=== PATIENT | male | born 1990 | race Caucasian/White ===

== ENCOUNTER 2019-06-20 15:19 | Emergency (ER) | payer SELFPAY ==
--- NOTE | 2019-06-20 15:46 | ER ---
Nurse's Notes [facility] Name: Geovani Duque Age: 28 yrs Sex: Male : 1990 Arrival Date: 06/20/2019 Time: 15:21 Bed 25 Private MD: Unknown, Unknown Diagnosis: Muscle spasm of back Presentation: 06/20 15:25 Presenting complaint: Patient states: I was pushing and pulling some membranes at work la1 and I felt a pop then started having some pain between my shoulder blades but more on the right. Transition of care: patient was not received from another setting of care. Onset of symptoms was June 20, 2019. Risk Assessment: Do you want to hurt yourself or someone else? Patient reports no desire to harm self or others. Initial Sepsis Screen: Does the patient meet any 2 criteria? No. Patient's initial sepsis screen is negative. Does the patient have a suspected source of infection? No. Patient's initial sepsis screen is negative. Care prior to arrival: None. 15:25 Method Of Arrival: Ambulatory la1 15:25 Acuity: WILMA 4 la1 Historical: - Allergies: 15:25 No Known Allergies; la1 - PMHx: 15:25 None; la1 - Immunization history:: Adult Immunizations up to date. - Social history:: Smoking status: Patient/guardian denies using tobacco. - Ebola Screening: : No symptoms or risks identified at this time. Screenin:34 Abuse screen: Denies threats or abuse. Nutritional screening: No deficits noted. tw2 Tuberculosis screening: No symptoms or risk factors identified. Fall Risk None identified. Assessment: 15:34 General: Appears in no apparent distress. Behavior is calm, cooperative, appropriate tw2 for age. Pain: Complains of pain in left low back and right low back. Neuro: Level of Consciousness is awake, alert, obeys commands, Oriented to person, place, time, situation. Cardiovascular: Patient's skin is warm and dry. Respiratory: Airway is patent Respiratory effort is even, unlabored, Respiratory pattern is regular, symmetrical. GI: No signs and/or symptoms were reported involving the gastrointestinal system. : No signs and/or symptoms were reported regarding the genitourinary system. EENT: No signs and/or symptoms were reported regarding the EENT system. Derm: No signs and/or symptoms reported regarding the dermatologic system. Musculoskeletal: Range of motion: intact in all extremities. 15:53 Reassessment: Patient appears in no apparent distress at this time. No changes from tw2 previously documented assessment. Patient and/or family updated on plan of care and expected duration. Pain level reassessed. Patient is alert, oriented x 3, equal unlabored respirations, skin warm/dry/pink. Vital Signs: 15:26 BP 168 / 101; Pulse 71; Resp 16; Temp 97.4; Pulse Ox 98% on R/A; Weight 122.47 kg; la1 Height 6 ft. 8 in. (203.20 cm); 15:26 Body Mass Index 29.66 (122.47 kg, 203.20 cm) la1 ED Course: 15:21 Patient arrived in ED. ag5 15:22 Unknown, Unknown is Private Physician. ag5 15:25 Arm band placed on left wrist. la1 15:26 Triage completed. la1 15:27 [facility] jr8 15:27 Bal Coburn MD is Attending Physician. jr8 15:27 Bed in low position. Call light in reach. tw2 15:28 Delio Martinez, ZOYA is Primary Nurse. rv 15:53 No provider procedures requiring assistance completed. Patient did not have IV access tw2 during this emergency room visit. Administered Medications: No medications were administered Outcome: 15:44 Discharge ordered by . jr8 15:53 Discharged to home ambulatory. tw2 15:53 Condition: stable 15:53 Discharge instructions given to patient, Instructed on discharge instructions, follow up and referral plans. Demonstrated understanding of instructions, follow-up care. 15:53 Patient left the ED. tw2 Signatures: Gab Boggs PA PA jr8 Danny Cardoso RN RN la1 Maude Escobedo RN RN tw2 Delio Martinez RN RN Ashley Rapp ag5
--- NOTE | 2019-06-20 15:46 | EDPHYS ---
Physician Documentation [facility] Name: Geovani Duque Age: 28 yrs Sex: Male : 1990 Arrival Date: 06/20/2019 Time: 15:21 Bed 25 Private MD: Unknown, Unknown ED Physician Bal Coburn HPI: 06/20 16:02 This 28 yrs old Male presents to ER via Ambulatory with complaints of Back Pain. jr8 16:02 The patient presents with pain that is acute. The symptoms are located in the right jr8 scapular area and right subscapular area. Onset: The symptoms/episode began/occurred acutely, today. The pain does not radiate. Associated signs and symptoms: The patient has no apparent associated signs or symptoms. The problem was sustained when lifting from twisting. Modifying factors: The patient symptoms are alleviated by nothing, the patient symptoms are aggravated by movement. Severity of symptoms: At their worst the symptoms were mild, in the emergency department the symptoms are unchanged. The patient has not experienced similar symptoms in the past. The patient has not recently seen a physician. 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 Pain since then. Denies any other symptoms . Historical: - Allergies: 15:25 No Known Allergies; la1 - PMHx: 15:25 None; la1 - Immunization history:: Adult Immunizations up to date. - Social history:: Smoking status: Patient/guardian denies using tobacco. - Ebola Screening: : No symptoms or risks identified at this time. ROS: 16:02 Eyes: Negative for injury, pain, redness, and discharge, ENT: Negative for injury, jr8 pain, and discharge, Neck: Negative for injury, pain, and swelling, Cardiovascular: Negative for chest pain, palpitations, and edema, Respiratory: Negative for shortness of breath, cough, wheezing, and pleuritic chest pain, Abdomen/GI: Negative for abdominal pain, nausea, vomiting, diarrhea, and constipation, MS/Extremity: Negative for injury and deformity, Skin: Negative for injury, rash, and discoloration, Neuro: Negative for headache, weakness, numbness, tingling, and seizure. 16:02 Back: Positive for pain at rest, pain with movement, of the right scapular area and right subscapular area. Exam: 16:02 Eyes: Pupils equal round and reactive to light, extra-ocular motions intact. Lids and jr8 lashes normal. Conjunctiva and sclera are non-icteric and not injected. Cornea within normal limits. Periorbital areas with no swelling, redness, or edema. ENT: Nares patent. No nasal discharge, no septal abnormalities noted. Tympanic membranes are normal and external auditory canals are clear. Oropharynx with no redness, swelling, or masses, exudates, or evidence of obstruction, uvula midline. Mucous membranes moist. Neck: Trachea midline, no thyromegaly or masses palpated, and no cervical lymphadenopathy. Supple, full range of motion without nuchal rigidity, or vertebral point tenderness. No Meningismus. Cardiovascular: Regular rate and rhythm with a normal S1 and S2. No gallops, murmurs, or rubs. Normal PMI, no JVD. No pulse deficits. Respiratory: Lungs have equal breath sounds bilaterally, clear to auscultation and percussion. No rales, rhonchi or wheezes noted. No increased work of breathing, no retractions or nasal flaring. Abdomen/GI: Soft, non-tender, with normal bowel sounds. No distension or tympany. No guarding or rebound. No evidence of tenderness throughout. Skin: Warm, dry with normal turgor. Normal color with no rashes, no lesions, and no evidence of cellulitis. MS/ Extremity: Pulses equal, no cyanosis. Neurovascular intact. Full, normal range of motion. Neuro: Awake and alert, GCS 15, oriented to person, place, time, and situation. Cranial nerves II-XII grossly intact. Motor strength 5/5 in all extremities. Sensory grossly intact. Cerebellar exam normal. Normal gait. 16:02 Back: pain, that is moderate, of the right scapular area and right subscapular area, ROM is painful, normal spinal alignment noted, CVA tenderness, is absent, muscle spasm, is appreciated in the right scapular area and right subscapular area. Vital Signs: 15:26 BP 168 / 101; Pulse 71; Resp 16; Temp 97.4; Pulse Ox 98% on R/A; Weight 122.47 kg; la1 Height 6 ft. 8 in. (203.20 cm); 15:26 Body Mass Index 29.66 (122.47 kg, 203.20 cm) la1 MDM: 15:27 Patient medically screened. jr8 15:44 Data reviewed: vital signs, nurses notes, and as a result, I will discharge patient. jr8 Data interpreted: Pulse oximetry: on room air is 98 %. Interpretation: normal. Counseling: I had a detailed discussion with the patient and/or guardian regarding: the historical points, exam findings, and any diagnostic results supporting the discharge/admit diagnosis, the need for outpatient follow up, a family practitioner, to return to the emergency department if symptoms worsen or persist or if there are any questions or concerns that arise at home. Administered Medications: No medications were administered Disposition: 20:39 Co-signature as Attending Physician, Bal Coburn MD I agree with the assessment and danielle plan of care. Disposition: 06/20/19 15:44 Discharged to Home. Impression: Muscle spasm of back. - Condition is Stable. - Discharge Instructions: Muscle Cramps and Spasms, Back Exercises, [id number], Heat Therapy. - Medication Reconciliation Form, Thank You Letter, Antibiotic Education, Prescription Opioid Use, Work release form form. - Follow up: Private Physician; When: 5 - 6 days; Reason: Recheck today's complaints, Continuance of care, Re-evaluation by your physician. - Problem is new. - Symptoms have improved. - Notes: Ibuprofen over the counter. 600-800mg three times per day as needed for pain Heat on/off as much as you want without falling asleep on device Decrease Range of motion for next few days Follow up with occupational health Signatures: Bal Coburn MD MD cha Roszak, Josh, PA PA jr8 Danny Cardoso RN RN la1 Maude Escobedo RN RN tw2 Corrections: (The following items were deleted from the chart) 15:53 15:44 06/20/2019 15:44 Discharged to Home. Impression: Muscle spasm of back. Condition tw2 is Stable. Forms are Medication Reconciliation Form, Thank You Letter, Antibiotic Education, Prescription Opioid Use. Follow up: Private Physician; When: 5 - 6 days; Reason: Recheck today's complaints, Continuance of care, Re-evaluation by your physician. Problem is new. Symptoms have improved. jr8
== END 2019-06-20 15:53 | disposition home or self-care (01) ==
LOC: ER 15:19
DX: M62.830 Muscle spasm of back (principal)
CPT/HCPCS: 99281